=== PATIENT | male | born 1985 | race Caucasian/White ===

== ENCOUNTER → 2024-01-07 | Outpatient (CLI) | payer OTHER ==
[~2024-01-07] MED LIST: AMOX875 PO; CYCL10 PO; Cipro500 MG PO; Endocet 7.5-321 EACH PO; Flagyl500 MG PO; HYDR1TAB94 PO; IBUP800 PO; MOXI400 PO; Norco 5-325 Ta1 EACH PO; PROM25 PO; Percocet 5-3251 EACH PO
== END ==
LOC: LAB 13:41 → LAB SHORT 13:41
DX: D22.61 Melanocytic nevi of right upper limb, including shoulder (principal); D22.5 Melanocytic nevi of trunk
CPT/HCPCS: 88305

== ENCOUNTER 2024-08-07 23:30 | Emergency (ER) | payer BC ==
[~2024-08-07] VITALS: Ht 180.3 cm; Wt 99.8 kg
[2024-08-07 23:44] VITALS: BP 174/84
== END 2024-08-07 23:56 | disposition home or self-care (01) ==
LOC: ER 23:30
DX: S61.211A Laceration without foreign body of left index finger without damage to nail, initial encounter (principal); W26.9XXA Contact with unspecified sharp object(s), initial encounter; Z79.899 Other long term (current) drug therapy
CPT/HCPCS: 12001; 99282-25